=== PATIENT | male | born 1955 | race Caucasian/White ===

== ENCOUNTER 2019-02-22 12:46 | Emergency (ER) | payer BC, OTHER ==
[~2019-02-22] VITALS: Ht 180.3 cm; Wt 105.7 kg
[2019-02-22 13:32] LABS: HEMOGLOBIN 20.7 gm/dL (14.0-18.0); MCH 33.1 pg (26.0-34.0); MCHC 34.3 g/dL (28.0-37.0); MCV 96.4 fL (80.0-100.0); RBC 6.25 mil/uL (4.50-6.00); RDW 13.7 % (10.5-14.5); WBC 9.2 thou/uL (4.0-11.0)
[2019-02-22 13:34] LABS: HEMATOCRIT 60.3 % (42.0-52.0)
[2019-02-22 13:37] LABS: ANION GAP 12 mmol/L (7-16); BUN 15 mg/dL (7-18); CALCIUM 9.6 mg/dL (8.5-10.1); CHLORIDE 105 mmol/L (98-107); CO2 23 mmol/L (21-32); CREATININE 1.4 mg/dL (0.7-1.3); GLUCOSE 131 mg/dL (74-106); POTASSIUM 4.2 mmol/L (3.5-5.1); SODIUM 140 mmol/L (136-145)
[2019-02-22 13:46] LABS: TROPONIN-I <0.06 ng/mL (<0.06)
[2019-02-22] MEDS ORDERED: NORVASC5 MG PO (13:56)
[2019-02-22] MEDS ORDERED: LOSARTAN POTASS50 MG PO (13:57)
[2019-02-22] MEDS ORDERED: FLOMAX0.4 MG PO (14:08)
[2019-02-22] MEDS ORDERED: ZOFRAN ODT4 MG PO (16:44)
[2019-02-22] MEDS ORDERED: ANTIVERT25 MG PO (16:44)
[2019-02-22 17:38] VITALS: BP 116/66
--- NOTE | 2019-02-22 18:06 | EKG ---
[address] [address] ELECTROCARDIOGRAM REPORT Name: GUILLAUME HARRISON Room #: REG KRISTEN Sultana#: [id number] Admission: 02/22/19 Attend Phys: Discharge: Date of : 53 Report #: [id number] THIS REPORT FOR: //name// [facility] ED Test Date: 2019-02-22 Test Time: 12:55:04 Pat Name: GUILLAUME HARRISON Department: Room: Gender: M Social Media Strategist: [place] : 1955 Requested By: Braeden Madrid Order Number: [id number] MD: Nick Rodriges Measurements Intervals [place] Rate: 87 P: 67 [place]: 142 QRS: 35 QRSD: 90 T: 57 QT: 370 QTc: 445 Interpretive Statements Sinus rhythm No previous ECG available for comparison Electronically Signed On 02-22-2019 18:05:50 CDT by Nick Rodriges [email or web address] <ELECTRONICALLY SIGNED> By: Nick Rodriges MD 02/22/19 1805 1255 1255 Nick [email or web address] MD /EPI
== END 2019-02-22 17:34 | disposition home or self-care (01) ==
LOC: ER 12:46
PROVIDERS: Emergency Medicine
DX: H81.399 Other peripheral vertigo, unspecified ear (principal); I10 Essential (primary) hypertension